=== PATIENT | female | born 1970 | race Two or more races ===

== ENCOUNTER 2019-09-15 13:51 | Outpatient (CLI) | payer OTHER | END 2019-09-15 13:52 | disposition home or self-care (01) | LOC: COV 13:51 | PROVIDERS: ATTEND Family Medicine | DX: R05 Cough (principal); R50.9 Fever, unspecified | CPT/HCPCS: 81599 ==

== ENCOUNTER 2022-06-16 09:38 | Outpatient (CLI) | payer OTHER ==
--- NOTE | 2022-06-19 11:53 | Ultrasound Report ---
LIMITED ULTRASOUND OF LEFT BREAST: 06/16/2022 CLINICAL: Patient returns today to evaluate an asymmetry in the left breast. Comparison is made to exam dated: 06/16/2022 mammogram - [facility]. Color flow and real-time ultrasound of the left breast 6-7 o'clock, 9 o'clock, and 12 o'clock region s were performed. Johnson scale images of the real-time examination were reviewed. There is a 0.6 cm x 0.2 cm x 0.3 cm oval mass in the left breast at 6 o'clock anterior depth 3 cm fro m the nipple. This oval mass is hypoechoic. This likely correlates with mammography findings. [place] r flow imaging demonstrates that there is no vascularity present. IMPRESSION: PROBABLY BENIGN The 0.6 cm x 0.2 cm x 0.3 cm oval mass in the left breast 6 o'clock resembles a fibroadenoma and is p robably benign. There is no abnormality seen in the left breast to correspond with the mammography finding at 12 o'cl ock which likely represents normal fibroglandular tissue. A follow-up left mammogram and a left ultrasound in 6 months is recommended to demonstrate stability. Findings and recommendations were conveyed to the patient during today's evaluation. This exam was interpreted at Station ID: [id number]. Electronically Signed By: Claus Garcia M.D. aty/:06/16/2022 14:07:41 Ultrasound BI-RADS: 3 Probably benign BI-RADS CATEGORY: (3) - 3 Mammo and [place] [id number] 6 month follow-up LATERALITY: (L)
--- NOTE | 2022-06-19 11:53 | Mammography Report ---
BILATERAL DIGITAL DIAGNOSTIC MAMMOGRAM 3D/2D: 06/16/2022 CLINICAL: Baseline exam. Left breast rash. No prior exams were available for comparison. There are scattered areas of fibroglandular density in both breasts (category b / 25%-50% glandular t issue). There is a possible 0.7 cm oval asymmetry with an obscured margin in the left breast middle depth sup erior region seen on the mediolateral oblique view only. There also is a possible 0.7 cm oval equal density asymmetry in the left breast anterior depth centra l to the nipple seen on the craniocaudal view only. No other significant masses, calcifications, or other findings are seen in either breast. IMPRESSION: INCOMPLETE: NEEDS ADDITIONAL IMAGING EVALUATION The possible 0.7 cm oval asymmetry in the left breast middle depth superior region seen on the mediol ateral oblique view only is indeterminate. An ultrasound is recommended for further evaluation and i s scheduled to immediately follow this examination. The possible 0.7 cm oval equal density asymmetry in the left breast anterior depth central to the nip ple seen on the craniocaudal view only is indeterminate. An ultrasound is recommended for further elda luation and is scheduled to immediately follow this examination. There is no abnormality seen in the left breast to correspond with the area of clinical concern and s kin lesion/rash in the lower inner quadrant, however, an ultrasound is recommended for further evalua tion and is scheduled to immediately follow this examination. Based on the Tyrer Cuzick model (a risk assessment model) the patients lifetime risk is 10.8% and he r 10 year risk is 2.8%. According to the ACR, ACS, and NCCN guidelines, an annual breast MRI exam danilo ng with mammogram is recommended if the patients lifetime risk is 20% or greater. This exam was interpreted at Station ID: [id number]. NOTE: For mammograms, a report in lay terms will be sent to the patient. Approximately 15% of breast malignancies will not be visualized mammographically. In the management of a palpable breast mass, a negative mammogram must not discourage biopsy of a clinically suspicious lesion. Electronically Signed By: Claus Garcia M.D. aty/:06/16/2022 11:56:55 ACR BI-RADS Category 0: Incomplete 3340F PARENCHYMAL PATTERN: (A) - The breast(s) demonstrate(s) scattered fibroglandular densities. BI-RADS CATEGORY: (0) - 0 Ultrasound [id number] Immediate follow-up LATERALITY: (L)
== END 2022-06-16 09:39 | disposition home or self-care (01) ==
LOC: DI 09:38
PROVIDERS: ATTEND Nurse Practitioner Family
DX: R92.8 Other abnormal and inconclusive findings on diagnostic imaging of breast (principal)

== ENCOUNTER 2024-01-07 15:26 | Outpatient (CLI) | payer OTHER ==
--- NOTE | 2024-01-09 10:49 | Mammography Report ---
BILATERAL DIGITAL SCREENING MAMMOGRAM 3D/2D: 01/07/2024 CLINICAL: Routine screening. Comparison is made to exams dated: 12/27/2022 mammogram and 06/16/2022 mammogram - [facility]. There are scattered areas of fibroglandular density in both breasts (category b / 25%-50% glandular t issue). There is a possible developing irregular high density asymmetry in the left breast middle depth later al region seen on the craniocaudal view only. No other significant masses, calcifications, or other findings are seen in either breast. IMPRESSION: INCOMPLETE: NEEDS ADDITIONAL IMAGING EVALUATION The possible developing irregular high density asymmetry in the left breast is indeterminate. Additi onal views with possible ultrasound are recommended. Based on the Tyrer Cuzick model (a risk assessment model) the patient's lifetime risk is 8.3% and her 10 year risk is 2.2%. According to the ACR, ACS, and NCCN guidelines, an annual breast MRI exam rebekah g with mammogram is recommended if the patient's lifetime risk is 20% or greater. This exam was interpreted at Station ID: [id number]. NOTE: For mammograms, a report in lay terms will be sent to the patient. Approximately 15% of breast malignancies will not be visualized mammographically. In the management of a palpable breast mass, a negative mammogram must not discourage biopsy of a clinically suspicious lesion. Electronically Signed By: Bhavya nicholas/radha:01/08/2024 09:28:22 ACR BI-RADS Category 0: Incomplete 3340F PARENCHYMAL PATTERN: (A) - The breast(s) demonstrate(s) scattered fibroglandular densities. BI-RADS CATEGORY: (0) - 0 Mammo and [place] [id number] Immediate follow-up LATERALITY: (B)
== END 2024-01-07 15:27 | disposition home or self-care (01) ==
LOC: DI.S 15:26
PROVIDERS: ATTEND Registered Nurse
DX: Z12.31 Encounter for screening mammogram for malignant neoplasm of breast (principal); R92.8 Other abnormal and inconclusive findings on diagnostic imaging of breast; R92.323 Mammographic fibroglandular density, bilateral breasts

== ENCOUNTER 2024-01-23 07:39 | Outpatient (CLI) | payer OTHER ==
--- NOTE | 2024-01-24 08:01 | Ultrasound Report ---
LIMITED ULTRASOUND OF LEFT BREAST: 01/23/2024 CLINICAL: Patient returns today to evaluate a focal asymmetry in the left breast. Comparison is made to exams dated: 01/23/2024 mammogram, 01/07/2024 mammogram, 12/27/2022 ultrasound, mammogram, 06/16/2022 ultrasound, and [facility] Real-time ultrasound of the left breast 4-6 o'clock region was performed. Johnson scale images of the real-time examination were reviewed. No significant abnormalities were seen sonographically in the left breast. Specifically, no finding to correspond to the patient's persistent left breast 5:00 screening mammographic abnormality. IMPRESSION: PROBABLY BENIGN No sonographic correlate to the mammographic finding. This could be a lymph node, occult on ultrasoun d. It is probably benign. A follow-up left mammogram and possible ultrasound in 6 months is recommended to demonstrate stabilit y. Findings and recommendations were conveyed to the patient at time of exam. This exam was interpreted at Station ID: [id number]. Electronically Signed By: Bhavya nicholas/:01/23/2024 08:55:23 Ultrasound BI-RADS: 3 Probably benign BI-RADS CATEGORY: (3) - 3 Mammo and [place] [id number] 6 month follow-up LATERALITY: (L)
--- NOTE | 2024-01-24 08:01 | Mammography Report ---
UNILATERAL LEFT DIGITAL DIAGNOSTIC MAMMOGRAM 3D/2D WITH SPOT COMPRESSION: 01/23/2024 CLINICAL: Patient returns today to evaluate an asymmetry in the left breast. Comparison is made to exams dated: 01/07/2024 mammogram, 12/27/2022 mammogram, and 06/16/2022 mammogram - [facility]. There are scattered areas of fibroglandular density in the left breast (category b / 25%-50% glandula r tissue). The 7 mm oval asymmetry with an obscured and circumscribed margin in the left breast at 5 o'clock pos terior depth persists with additional views. This may have been present 1., but is now more pr ominent. No other significant masses or calcifications are seen in the breast. IMPRESSION: INCOMPLETE: NEEDS ADDITIONAL IMAGING EVALUATION The 7 mm oval asymmetry in the left breast persists, but remains indeterminate. An ultrasound is rec ommended. This was performed immediately following this exam. Based on the Tyrer Cuzick model (a risk assessment model) the patient's lifetime risk is 8.3% and her 10 year risk is 2.2%. According to the ACR, ACS, and NCCN guidelines, an annual breast MRI exam rebekah g with mammogram is recommended if the patient's lifetime risk is 20% or greater. This exam was interpreted at Station ID: [id number]. NOTE: For mammograms, a report in lay terms will be sent to the patient. Approximately 15% of breast malignancies will not be visualized mammographically. In the management of a palpable breast mass, a negative mammogram must not discourage biopsy of a clinically suspicious lesion. Electronically Signed By: Bhavya nicholas/:01/23/2024 08:26:55 ACR BI-RADS Category 0: Incomplete 3340F PARENCHYMAL PATTERN: (A) - The breast(s) demonstrate(s) scattered fibroglandular densities. BI-RADS CATEGORY: (0) - 0 Ultrasound [id number] Immediate follow-up LATERALITY: (B)
== END 2024-01-23 07:40 | disposition home or self-care (01) ==
LOC: DI 07:39
PROVIDERS: ATTEND Registered Nurse
DX: R92.8 Other abnormal and inconclusive findings on diagnostic imaging of breast (principal); R92.322 Mammographic fibroglandular density, left breast